=== PATIENT | female | born 1950 | race Caucasian/White ===

== ENCOUNTER 2021-10-30 13:52 | Inpatient (IN) | payer MEDICARE, BC ==
[2021-10-30] MEDS ORDERED: Sodium Chloride 0.9% 2.5 ML Syringe FLUSH PRN ×2 (14:01→15:55)
[2021-10-30] MEDS ORDERED: Aspirin 81 MG Tab.Chew PO ONE (14:01)
[2021-10-30] MEDS ORDERED: Sodium Chloride 0.9% 10 ML Syringe FLUSH PRN (14:01)
[2021-10-30] MEDS ORDERED: Albuterol/Ipratropium 3.0-0.5 MG/3 ML Neb Soln NEB ONE (14:04)
[2021-10-30] MEDS ORDERED: Furosemide 40 MG/4 ML VIAL IVPUSH ONE (14:32)
[2021-10-30] MEDS ORDERED: Nitroglycerin 0.2 MG/HR Transdermal Patch TRDERM STA (14:33)
[2021-10-30 14:59] LABS: BLOOD UREA NITROGEN,BUN 10 mg/dL (7.0-18.0); CHLORIDE,CL 100 mmol/L (98-107); GLUCOSE RANDOM 130 mg/dL (74-106); POTASSIUM,K 4.2 mmol/L (3.5-5.1); SODIUM,NA 137 mmol/L (136-145)
[2021-10-30 15:42] LABS: CORONAVIRUS COVID-19 NAA NEGATIVE (NEGATIVE); INFLUENZA A NAA NEGATIVE (NEGATIVE); INFLUENZA B NAA NEGATIVE (NEGATIVE)
[2021-10-30] MEDS ORDERED: Docusate Sodium 100 MG Cap PO PRN (15:55)
[2021-10-30] MEDS ORDERED: Albuterol/Ipratropium 3.0-0.5 MG/3 ML Neb Soln NEB PRN (15:55)
[2021-10-30] MEDS ORDERED: Ondansetron 4 MG/2 ML SDV IVPUSH PRN (15:55)
[2021-10-30] MEDS ORDERED: Heparin Sodium 5,000 Units/ML Vial SUBCUT SCH (16:00)
[2021-10-30] MEDS ORDERED: Metoprolol Tartrate 50 MG Tab PO SCH (16:15)
[2021-10-30] MEDS ORDERED: hydrALAZINE 20 MG/ML SDV IVPUSH PRN (16:15)
[2021-10-30] MEDS ORDERED: Iopamidol 755 MG/ML 500 ML Multipack Bottle IVPUSH STA (16:29)
[2021-10-30] MEDS ORDERED: cefTRIAXone 1 GM in Sodium Chloride 0.9% 50 ML IV SCH (17:00)
[2021-10-30] MEDS: Nicotine 14 MG/24 Hr Patch TRDERM SCH (18:58)
[2021-10-30] MEDS: Heparin Sodium 5,000 Units/ML Vial SUBCUT SCH ×2 (20:12→21:00)
[2021-10-30] MEDS: cefTRIAXone 1 GM in Sodium Chloride 0.9% 50 ML IV SCH (20:12)
[2021-10-30] MEDS: Acetaminophen 325 MG Tab PO PRN (20:22)
[2021-10-30] MEDS: Metoprolol Tartrate 50 MG Tab PO SCH (21:00)
[2021-10-31 06:39] LABS: CARBON DIOXIDE,CO2 32.5 mmol/L (21.0-32.0); POTASSIUM,K 4.4 mmol/L (3.5-5.1)
[2021-10-31] MEDS ORDERED: NICOTINE Remove Patch TRDERM SCH (09:00)
[2021-10-31] MEDS: Pantoprazole 40 MG Tab.CR PO SCH (09:24)
[2021-10-31] MEDS: amLODIPine 5 MG Tab PO SCH (09:24)
[2021-10-31] MEDS: Metoprolol Tartrate 50 MG Tab PO SCH ×2 (09:27→20:25)
[2021-10-31] MEDS: Heparin Sodium 5,000 Units/ML Vial SUBCUT SCH ×3 (09:28→19:33)
[2021-10-31] MEDS: Aspirin 81 MG Tab.Chew PO SCH (09:28)
[2021-10-31] MEDS: Furosemide 40 MG/4 ML VIAL IVPUSH SCH ×2 (09:28→14:34)
[2021-10-31] MEDS: Nicotine 14 MG/24 Hr Patch TRDERM SCH (09:33)
[2021-10-31] MEDS: cefTRIAXone 1 GM in Sodium Chloride 0.9% 50 ML IV SCH (20:42)
[2021-10-31] MEDS: NICOTINE Remove Patch TRDERM SCH (21:00)
[2021-11-01] MEDS: Heparin Sodium 5,000 Units/ML Vial SUBCUT SCH ×3 (00:36→16:16)
[2021-11-01 06:13] LABS: CARBON DIOXIDE,CO2 35.7 mmol/L (21.0-32.0); POTASSIUM,K 4.2 mmol/L (3.5-5.1)
[2021-11-01] MEDS: Pantoprazole 40 MG Tab.CR PO SCH (06:38)
[2021-11-01] MEDS ORDERED: Furosemide 40 MG/4 ML VIAL IVPUSH SCH (08:00)
[2021-11-01] MEDS: Metoprolol Tartrate 50 MG Tab PO SCH ×2 (09:14→21:26)
[2021-11-01] MEDS: Nicotine 14 MG/24 Hr Patch TRDERM SCH (09:15)
[2021-11-01] MEDS: Aspirin 81 MG Tab.Chew PO SCH (09:15)
[2021-11-01] MEDS: amLODIPine 5 MG Tab PO SCH (09:15)
[2021-11-01] MEDS: Furosemide 40 MG/4 ML VIAL IVPUSH SCH ×2 (14:22→21:27)
[2021-11-01] MEDS: cefTRIAXone 1 GM in Sodium Chloride 0.9% 50 ML IV SCH (21:27)
[2021-11-01] MEDS: NICOTINE Remove Patch TRDERM SCH (21:27)
[2021-11-01] MEDS: Acetaminophen 325 MG Tab PO PRN (22:13)
[2021-11-02] MEDS: Heparin Sodium 5,000 Units/ML Vial SUBCUT SCH ×3 (00:16→18:51)
[2021-11-02 05:54] LABS: CARBON DIOXIDE,CO2 40.3 mmol/L (21.0-32.0)
[2021-11-02] MEDS: Pantoprazole 40 MG Tab.CR PO SCH ×2 (06:22→08:49)
[2021-11-02] MEDS: Furosemide 40 MG/4 ML VIAL IVPUSH SCH ×3 (06:24→22:27)
[2021-11-02] MEDS: amLODIPine 5 MG Tab PO SCH (08:50)
[2021-11-02] MEDS: Nicotine 14 MG/24 Hr Patch TRDERM SCH (08:50)
[2021-11-02] MEDS: Aspirin 81 MG Tab.Chew PO SCH (08:50)
[2021-11-02] MEDS: Metoprolol Tartrate 50 MG Tab PO SCH ×2 (08:51→21:36)
[2021-11-02] MEDS ORDERED: Promethazine 25 MG/ML SDV IM PRN (10:48)
[2021-11-02] MEDS: cefTRIAXone 1 GM in Sodium Chloride 0.9% 50 ML IV SCH (21:36)
[2021-11-02] MEDS: NICOTINE Remove Patch TRDERM SCH (21:37)
[2021-11-03] MEDS: Heparin Sodium 5,000 Units/ML Vial SUBCUT SCH ×4 (01:06→23:16)
[2021-11-03] MEDS: Pantoprazole 40 MG Tab.CR PO SCH ×2 (06:06→06:43)
[2021-11-03] MEDS: Furosemide 40 MG/4 ML VIAL IVPUSH SCH ×3 (06:06→21:19)
[2021-11-03 06:10] LABS: POTASSIUM,K 3.3 mmol/L (3.5-5.1)
[2021-11-03] MEDS: Aspirin 81 MG Tab.Chew PO SCH (10:30)
[2021-11-03] MEDS: Nicotine 14 MG/24 Hr Patch TRDERM SCH (10:33)
[2021-11-03] MEDS: Metoprolol Tartrate 50 MG Tab PO SCH ×2 (10:34→21:17)
[2021-11-03] MEDS: amLODIPine 5 MG Tab PO SCH (10:34)
[2021-11-03] MEDS ORDERED: Potassium Chloride 20 MEQ Tab.ER PO ONE (12:11)
[2021-11-03] MEDS: cefTRIAXone 1 GM in Sodium Chloride 0.9% 50 ML IV SCH (20:22)
[2021-11-03] MEDS: NICOTINE Remove Patch TRDERM SCH (20:23)
[2021-11-03] MEDS: Acetaminophen 325 MG Tab PO PRN (21:18)
[2021-11-04] MEDS: Furosemide 40 MG/4 ML VIAL IVPUSH SCH ×3 (06:28→21:03)
[2021-11-04] MEDS: Pantoprazole 40 MG Tab.CR PO SCH (06:30)
[2021-11-04 07:29] LABS: CARBON DIOXIDE,CO2 41.7 mmol/L (21.0-32.0); POTASSIUM,K 3.7 mmol/L (3.5-5.1)
[2021-11-04] MEDS: Aspirin 81 MG Tab.Chew PO SCH (08:10)
[2021-11-04] MEDS: Nicotine 14 MG/24 Hr Patch TRDERM SCH (08:10)
[2021-11-04] MEDS: amLODIPine 5 MG Tab PO SCH (08:10)
[2021-11-04] MEDS: Potassium Chloride 10 MEQ Tab.ER PO SCH (08:11)
[2021-11-04] MEDS: Heparin Sodium 5,000 Units/ML Vial SUBCUT SCH ×3 (08:11→23:04)
[2021-11-04] MEDS: Metoprolol Tartrate 50 MG Tab PO SCH ×2 (08:11→20:52)
[2021-11-04] MEDS: Acetaminophen 325 MG Tab PO PRN (21:01)
[2021-11-04] MEDS: NICOTINE Remove Patch TRDERM SCH (21:02)
[2021-11-05] MEDS: Pantoprazole 40 MG Tab.CR PO SCH (06:36)
[2021-11-05] MEDS: Furosemide 40 MG/4 ML VIAL IVPUSH SCH (06:38)
[2021-11-05 07:07] LABS: CARBON DIOXIDE,CO2 42.6 mmol/L (21.0-32.0); POTASSIUM,K 3.4 mmol/L (3.5-5.1)
[2021-11-05] MEDS: Heparin Sodium 5,000 Units/ML Vial SUBCUT SCH ×3 (09:00→23:19)
[2021-11-05] MEDS: Aspirin 81 MG Tab.Chew PO SCH (09:14)
[2021-11-05] MEDS: Potassium Chloride 10 MEQ Tab.ER PO SCH (09:16)
[2021-11-05] MEDS: Nicotine 14 MG/24 Hr Patch TRDERM SCH (09:16)
[2021-11-05] MEDS: Metoprolol Tartrate 50 MG Tab PO SCH (09:18)
[2021-11-05] MEDS: amLODIPine 5 MG Tab PO SCH (09:19)
[2021-11-05] MEDS ORDERED: Potassium Chloride 20 MEQ Tab.ER PO ONE (10:50)
[2021-11-05] MEDS: Metoprolol Tartrate 25 MG Tab PO SCH (20:05)
[2021-11-05] MEDS: Acetaminophen 325 MG Tab PO PRN (20:05)
[2021-11-05] MEDS: Furosemide 100 MG/10 ML SDV IVPUSH SCH (20:05)
[2021-11-05] MEDS: NICOTINE Remove Patch TRDERM SCH (20:06)
[2021-11-06] MEDS: Pantoprazole 40 MG Tab.CR PO SCH (06:35)
[2021-11-06 06:43] LABS: CARBON DIOXIDE,CO2 38.3 mmol/L (21.0-32.0); POTASSIUM,K 3.6 mmol/L (3.5-5.1)
[2021-11-06] MEDS: Heparin Sodium 5,000 Units/ML Vial SUBCUT SCH ×2 (08:35→16:04)
[2021-11-06] MEDS: Aspirin 81 MG Tab.Chew PO SCH (08:36)
[2021-11-06] MEDS: amLODIPine 5 MG Tab PO SCH (08:36)
[2021-11-06] MEDS: Metoprolol Tartrate 25 MG Tab PO SCH (08:40)
[2021-11-06] MEDS: Potassium Chloride 10 MEQ Tab.ER PO SCH (08:41)
[2021-11-06] MEDS: Nicotine 14 MG/24 Hr Patch TRDERM SCH (08:42)
[2021-11-06] MEDS: Furosemide 100 MG/10 ML SDV IVPUSH SCH (09:32)
[2021-11-06 11:50] VITALS: BP 145/59; PULSE 57
== END 2021-11-06 17:48 | disposition home health service (06) | DRG 291 ==
LOC: MW.ED 13:52 → MW.MS 15:40
PROVIDERS: ADMIT Internal Medicine; ATTEND Internal Medicine
DX: I11.0 Hypertensive heart disease with heart failure (principal); J96.01 Acute respiratory failure with hypoxia; N39.0 Urinary tract infection, site not specified; I50.9 Heart failure, unspecified; K21.9 Gastro-esophageal reflux disease without esophagitis; Z20.822 Contact with and (suspected) exposure to COVID-19; E66.9 Obesity, unspecified; Z66 Do not resuscitate; I08.1 Rheumatic disorders of both mitral and tricuspid valves; F17.210 Nicotine dependence, cigarettes, uncomplicated; E87.6 Hypokalemia; Z68.38 Body mass index [BMI] 38.0-38.9, adult; Z88.8 Allergy status to other drugs, medicaments and biological substances; Z79.82 Long term (current) use of aspirin; Z79.899 Other long term (current) drug therapy; Z86.73 Personal history of transient ischemic attack (TIA), and cerebral infarction without residual deficits
CPT/HCPCS: 0240U; 36415; 71045; 71275; 80048; 80053; 80061; 81001; 83036; 83735; 83880; 84100; 84439; 84443; 84484; 85025; 85027; 85379; 87086; 87088; 87186; 93005; 93306; 94640; 97163; 99285; 93010; 99223; 99232; 99233; 99238; A9270-GY; J0696; J1644; J1940; J2405; J3490; J7620-GY; Q9967

== ENCOUNTER 2021-12-18 16:34 | Emergency (ER) | payer MEDICARE, BC ==
[2021-12-18] MEDS ORDERED: Sodium Chloride 0.9% 2.5 ML Syringe FLUSH PRN (16:41)
[2021-12-18] MEDS ORDERED: Sodium Chloride 0.9% 10 ML Syringe FLUSH PRN (16:41)
[2021-12-18 17:24] LABS: CARBON DIOXIDE,CO2 27.5 mmol/L (21.0-32.0); POTASSIUM,K 4.1 mmol/L (3.5-5.1)
[2021-12-18 19:23] VITALS: BP 189/86; PULSE 66
== END 2021-12-18 19:30 | disposition home or self-care (01) ==
LOC: MW.ED 16:34
DX: R42 Dizziness and giddiness (principal); R60.0 Localized edema; I11.0 Hypertensive heart disease with heart failure; I50.9 Heart failure, unspecified; J44.9 Chronic obstructive pulmonary disease, unspecified; F17.210 Nicotine dependence, cigarettes, uncomplicated; Z91.018 Allergy to other foods; Z79.82 Long term (current) use of aspirin; Z79.899 Other long term (current) drug therapy; Z20.822 Contact with and (suspected) exposure to COVID-19
CPT/HCPCS: 36415; 71046; 80053; 83880; 84484; 85025; 93005; 93970; 99284; J3490; U0002

== ENCOUNTER 2022-12-28 10:22 | Emergency (ER) | payer MEDICARE, BC ==
[2022-12-28 12:26] VITALS: BP 172/74; PULSE 50
== END 2022-12-28 12:28 | disposition home or self-care (01) ==
LOC: MW.ED 10:22
DX: M17.12 Unilateral primary osteoarthritis, left knee (principal); I11.0 Hypertensive heart disease with heart failure; I50.9 Heart failure, unspecified; J44.9 Chronic obstructive pulmonary disease, unspecified; M19.90 Unspecified osteoarthritis, unspecified site; F17.210 Nicotine dependence, cigarettes, uncomplicated; Z88.8 Allergy status to other drugs, medicaments and biological substances; Z91.018 Allergy to other foods; Z79.82 Long term (current) use of aspirin; Z79.899 Other long term (current) drug therapy
CPT/HCPCS: 73562-26-LT; 73562-LT; 99283

== ENCOUNTER 2023-01-18 14:30 | Emergency (ER) | payer MEDICARE, BC ==
[2023-01-18 16:30] VITALS: BP 172/64
[2023-01-18 17:13] LABS: BASOPHILS ABSOLUTE AUTO 0.1 K/uL (0.0-0.1); BASOPHILS PERCENT AUTO 0.5 % (0.0-1.5); EOSINOPHILS ABSOLUTE AUTO 0.1 K/uL (0.0-0.7); EOSINOPHILS PERCENT AUTO 0.7 % (0.0-7.0); HEMATOCRIT 49.9 % (36.0-46.0); HEMOGLOBIN 16.7 g/dL (12.0-16.0); LYMPHOCYTES ABSOLUTE AUTO 2.5 K/uL (0.6-2.4); LYMPHOCYTES PERCENT AUTO 20.5 % (16.0-40.0); MEAN CORPUSCULAR HEMOGLOBIN 33.5 pg (27.0-32.0); MEAN CORPUSCULAR HGB CONC 33.5 g/dL (31.0-37.0); MONOCYTES ABSOLUTE AUTO 0.7 K/uL (0.0-0.8); MONOCYTES PERCENT AUTO 5.5 % (0.0-15.0); NEUTROPHILS PERCENT AUTO 72.8 % (48.0-80.0); NRBC ABSOLUTE 0 K/uL; PLATELET COUNT,PLT 265 K/uL (150-400); RED BLOOD CELL COUNT 4.99 M/uL (4.30-5.90); WHITE BLOOD CELL COUNT,WBC 12.33 K/uL (4.0-11.0)
[2023-01-18 17:23] LABS: INR 1.04 (0.86-1.11)
[2023-01-18 17:41] LABS: A/G RATIO 0.9 (0.9-1.6); ALBUMIN 3.7 g/dL (3.4-5.0); BILIRUBIN TOTAL 0.7 mg/dL (0.2-1.0); CALCIUM 9.6 mg/dL (8.5-10.1); CARBON DIOXIDE,CO2 30.4 mmol/L (21.0-32.0); CREATININE 1.3 mg/dL (0.6-1.0); EST CRCL DRUG DOSING (CG) 27.68 mL/min; PROTEIN TOTAL,TP 7.9 g/dL (6.4-8.2)
[2023-01-18 18:07] LABS: APPEARANCE,URINE CLEAR; BILIRUBIN,URINE NEGATIVE (NEGATIVE); COLOR,URINE YELLOW; GLUCOSE,URINE NEGATIVE (NEGATIVE); KETONES,URINE NEGATIVE (NEGATIVE); LEUKOCYTE ESTERASE,URINE NEGATIVE (NEGATIVE); NITRITE,URINE NEGATIVE (NEGATIVE); OCCULT BLOOD,URINE TRACE-INTACT (NEGATIVE); PROTEIN,URINE NEGATIVE (NEGATIVE); UROBILINOGEN,URINE 0.2 EU/dL (<2.0)
[2023-01-18 18:21] LABS: BACTERIA,URINE RARE (NEGATIVE); EPITHELIAL CELLS,URINE RARE (NONE-FEW); RBC,URINE 0-2 (0-2/HPF); WBC,URINE 0-1 (0-5/HPF)
[2023-01-18 19:15] VITALS: PULSE 76
== END 2023-01-18 19:14 | disposition home or self-care (01) ==
LOC: MW.ED 14:30
DX: R60.0 Localized edema (principal); I11.0 Hypertensive heart disease with heart failure; I50.9 Heart failure, unspecified; J44.9 Chronic obstructive pulmonary disease, unspecified; Z86.73 Personal history of transient ischemic attack (TIA), and cerebral infarction without residual deficits; Z72.0 Tobacco use; Z88.8 Allergy status to other drugs, medicaments and biological substances; Z91.018 Allergy to other foods
CPT/HCPCS: 36415; 71045; 71045-26; 80053; 81001; 83880; 84484; 85025; 85610; 93005; 93971-26-LT; 93971-LT; 99285

== ENCOUNTER 2024-10-05 17:16 | Emergency (ER) | payer MEDICARE, BC ==
[2024-10-05 18:41] LABS: BASOPHILS ABSOLUTE AUTO 0.03 K/uL (0.00-0.20); BASOPHILS PERCENT AUTO 0.4 % (0.0-1.0); EOSINOPHILS ABSOLUTE AUTO 0.03 K/uL (0.00-0.45); EOSINOPHILS PERCENT AUTO 0.4 % (0.0-6.0); HEMATOCRIT 50.3 % (37.0-47.0); HEMOGLOBIN 16.3 g/dL (12.0-16.0); IMMATURE GRAN ABSOLUTE AUTO 0.03 K/uL (0.00-0.05); IMMATURE GRAN PERCENT AUTO 0.4 % (0.0-0.4); LYMPHOCYTES PERCENT AUTO 11.9 % (24.0-44.0); MEAN CORPUSCULAR HEMOGLOBIN 31.7 pg (28.0-32.0); MEAN CORPUSCULAR HGB CONC 32.4 g/dL (32.0-36.0); MEAN CORPUSCULAR VOLUME 97.7 fL (83.0-99.0); MEAN PLATELET VOLUME 9.7 fL (9.4-12.3); MONOCYTES ABSOLUTE AUTO 0.63 K/uL (0.00-0.80); MONOCYTES PERCENT AUTO 9.3 % (0.0-8.0); NEUTROPHILS ABSOLUTE AUTO 5.23 K/uL (1.80-7.70); NEUTROPHILS PERCENT AUTO 77.6 % (41.0-71.0); PLATELET COUNT,PLT 182 K/uL (150-400); RED BLOOD CELL COUNT 5.15 M/uL (4.10-5.30); WHITE BLOOD CELL COUNT,WBC 6.75 K/uL (3.9-11.3)
[2024-10-05 19:00] LABS: CALCIUM 9.1 mg/dL (8.5-10.1); CARBON DIOXIDE,CO2 28.9 mmol/L (21.0-32.0); CREATININE 1.2 mg/dL (0.6-1.0); EST CRCL DRUG DOSING (CG) 36.45 mL/min; POTASSIUM,K 4.1 mmol/L (3.5-5.1)
[2024-10-05 19:24] VITALS: BP 132/70; PULSE 64
== END 2024-10-05 19:25 | disposition home or self-care (01) ==
LOC: MW.ED 17:16
DX: J40 Bronchitis, not specified as acute or chronic (principal); I11.0 Hypertensive heart disease with heart failure; I50.9 Heart failure, unspecified; F17.200 Nicotine dependence, unspecified, uncomplicated; Z79.899 Other long term (current) drug therapy; Z91.018 Allergy to other foods; Z88.8 Allergy status to other drugs, medicaments and biological substances
CPT/HCPCS: 36415; 71045; 71045-26; 80048; 85025; 87428-QW; 99283

== ENCOUNTER 2025-01-04 11:39 | Emergency (ER) | payer MEDICARE, BC ==
[2025-01-04 12:36] LABS: BASOPHILS ABSOLUTE AUTO 0.07 K/uL (0.00-0.20); BASOPHILS PERCENT AUTO 0.7 % (0.0-1.0); EOSINOPHILS ABSOLUTE AUTO 0.05 K/uL (0.00-0.45); EOSINOPHILS PERCENT AUTO 0.5 % (0.0-6.0); HEMATOCRIT 50.1 % (37.0-47.0); HEMOGLOBIN 16.4 g/dL (12.0-16.0); IMMATURE GRAN ABSOLUTE AUTO 0.02 K/uL (0.00-0.05); IMMATURE GRAN PERCENT AUTO 0.2 % (0.0-0.4); LYMPHOCYTES PERCENT AUTO 10.3 % (24.0-44.0); MEAN CORPUSCULAR HEMOGLOBIN 31.5 pg (28.0-32.0); MEAN CORPUSCULAR HGB CONC 32.7 g/dL (32.0-36.0); MEAN CORPUSCULAR VOLUME 96.2 fL (83.0-99.0); MEAN PLATELET VOLUME 9.1 fL (9.4-12.3); MONOCYTES PERCENT AUTO 5.1 % (0.0-8.0); NEUTROPHILS ABSOLUTE AUTO 8.11 K/uL (1.80-7.70); NEUTROPHILS PERCENT AUTO 83.2 % (41.0-71.0); PLATELET COUNT,PLT 269 K/uL (150-400); RED BLOOD CELL COUNT 5.21 M/uL (4.10-5.30); WHITE BLOOD CELL COUNT,WBC 9.75 K/uL (3.9-11.3)
[2025-01-04 13:00] LABS: A/G RATIO 0.9 (0.9-1.6); ALBUMIN 3.4 g/dL (3.4-5.0); BILIRUBIN TOTAL 0.9 mg/dL (0.2-1.0); CALCIUM 9.1 mg/dL (8.5-10.1); CARBON DIOXIDE,CO2 30.5 mmol/L (21.0-32.0); CREATININE 1.2 mg/dL (0.6-1.0); EST CRCL DRUG DOSING (CG) 36.45 mL/min; POTASSIUM,K 4.9 mmol/L (3.5-5.1); PROTEIN TOTAL,TP 7.2 g/dL (6.4-8.2)
[2025-01-04 14:19] LABS: APPEARANCE,URINE SLT CLOUDY; BILIRUBIN,URINE NEGATIVE (NEGATIVE); COLOR,URINE YELLOW; GLUCOSE,URINE NEGATIVE (NEGATIVE); KETONES,URINE NEGATIVE (NEGATIVE); LEUKOCYTE ESTERASE,URINE SMALL (NEGATIVE); NITRITE,URINE POSITIVE (NEGATIVE); OCCULT BLOOD,URINE NEGATIVE (NEGATIVE); PH,URINE 5.5 (5.0-8.0); PROTEIN,URINE NEGATIVE (NEGATIVE)
[2025-01-04 14:32] LABS: BACTERIA,URINE 2+ (NEGATIVE); EPITHELIAL CELLS,URINE FEW (NONE-FEW); MUCUS,URINE LIGHT (NONE-MOD); RBC,URINE NONE SEEN (0-2/HPF)
[2025-01-04 15:33] VITALS: BP 164/52; PULSE 61
== END 2025-01-04 15:33 | disposition home or self-care (01) ==
LOC: MW.ED 11:39
DX: R19.7 Diarrhea, unspecified (principal); R42 Dizziness and giddiness; R82.90 Unspecified abnormal findings in urine; I11.0 Hypertensive heart disease with heart failure; I50.9 Heart failure, unspecified; J44.9 Chronic obstructive pulmonary disease, unspecified; F17.210 Nicotine dependence, cigarettes, uncomplicated; Z86.73 Personal history of transient ischemic attack (TIA), and cerebral infarction without residual deficits; Z91.018 Allergy to other foods; Z88.8 Allergy status to other drugs, medicaments and biological substances; Z79.82 Long term (current) use of aspirin; Z79.899 Other long term (current) drug therapy
CPT/HCPCS: 36415; 80053; 81001; 83735; 85025; 87086; 93005; 93010; 99283; 99285

== ENCOUNTER 2025-01-07 16:35 | Emergency (ER) | payer MEDICARE, BC ==
[2025-01-07] MEDS ORDERED: Sodium Chloride 0.9% 2.5 ML Syringe FLUSH PRN (17:04)
[2025-01-07] MEDS ORDERED: Sodium Chloride 0.9% 20 ML SDV IV PRN (17:04)
[2025-01-07] MEDS ORDERED: Sodium Chloride 0.9% 10 ML Syringe FLUSH PRN (17:04)
[2025-01-07 17:35] LABS: BASOPHILS ABSOLUTE AUTO 0.06 K/uL (0.00-0.20); BASOPHILS PERCENT AUTO 0.7 % (0.0-1.0); EOSINOPHILS ABSOLUTE AUTO 0.16 K/uL (0.00-0.45); EOSINOPHILS PERCENT AUTO 1.9 % (0.0-6.0); HEMATOCRIT 50.8 % (37.0-47.0); HEMOGLOBIN 16.7 g/dL (12.0-16.0); IMMATURE GRAN ABSOLUTE AUTO 0.03 K/uL (0.00-0.05); IMMATURE GRAN PERCENT AUTO 0.4 % (0.0-0.4); LYMPHOCYTES ABSOLUTE AUTO 1.61 K/uL (1.00-4.80); LYMPHOCYTES PERCENT AUTO 18.8 % (24.0-44.0); MEAN CORPUSCULAR HEMOGLOBIN 31.6 pg (28.0-32.0); MEAN CORPUSCULAR HGB CONC 32.9 g/dL (32.0-36.0); MEAN PLATELET VOLUME 9.1 fL (9.4-12.3); MONOCYTES ABSOLUTE AUTO 0.54 K/uL (0.00-0.80); MONOCYTES PERCENT AUTO 6.3 % (0.0-8.0); NEUTROPHILS ABSOLUTE AUTO 6.16 K/uL (1.80-7.70); NEUTROPHILS PERCENT AUTO 71.9 % (41.0-71.0); PLATELET COUNT,PLT 271 K/uL (150-400); RED BLOOD CELL COUNT 5.29 M/uL (4.10-5.30); WHITE BLOOD CELL COUNT,WBC 8.56 K/uL (3.9-11.3)
[2025-01-07] MEDS: Sodium Chloride 0.9% 500 ML IV ONE (17:36)
[2025-01-07 17:57] LABS: A/G RATIO 0.9 (0.9-1.6); ALBUMIN 3.6 g/dL (3.4-5.0); BILIRUBIN TOTAL 0.9 mg/dL (0.2-1.0); CALCIUM 9.2 mg/dL (8.5-10.1); CARBON DIOXIDE,CO2 31.3 mmol/L (21.0-32.0); CREATININE 1.1 mg/dL (0.6-1.0); EST CRCL DRUG DOSING (CG) 39.76 mL/min; POTASSIUM,K 4.1 mmol/L (3.5-5.1); PROTEIN TOTAL,TP 7.4 g/dL (6.4-8.2)
[2025-01-07 17:58] LABS: APPEARANCE,URINE CLEAR; BILIRUBIN,URINE NEGATIVE (NEGATIVE); COLOR,URINE YELLOW; GLUCOSE,URINE NEGATIVE (NEGATIVE); KETONES,URINE TRACE mg/dL (NEGATIVE); LEUKOCYTE ESTERASE,URINE NEGATIVE (NEGATIVE); NITRITE,URINE POSITIVE (NEGATIVE); OCCULT BLOOD,URINE NEGATIVE (NEGATIVE); PH,URINE 5.5 (5.0-8.0); PROTEIN,URINE NEGATIVE (NEGATIVE); UROBILINOGEN,URINE 0.2 EU/dL (<2.0)
[2025-01-07 18:14] LABS: RBC,URINE 0-1 (0-2/HPF); WBC,URINE 0-2 (0-5/HPF)
[2025-01-07 18:15] LABS: BACTERIA,URINE 2+ (NEGATIVE); EPITHELIAL CELLS,URINE RARE (NONE-FEW)
[2025-01-07 19:08] LABS: CORONAVIRUS COVID-19 NAA NEGATIVE (NEGATIVE); INFLUENZA A NAA NEGATIVE (NEGATIVE); INFLUENZA B NAA NEGATIVE (NEGATIVE); RESPIRATORY SYNCYTIAL VIR NAA NEGATIVE (NEGATIVE)
[2025-01-07] MEDS: Cephalexin 500 MG Cap PO ONE (19:19)
[2025-01-07 19:47] VITALS: BP 171/55; PULSE 61
== END 2025-01-07 19:47 | disposition home or self-care (01) ==
LOC: MW.ED 16:35
DX: R10.84 Generalized abdominal pain (principal); R05.9 Cough, unspecified; R82.90 Unspecified abnormal findings in urine; I11.0 Hypertensive heart disease with heart failure; I50.9 Heart failure, unspecified; J44.9 Chronic obstructive pulmonary disease, unspecified; Z79.899 Other long term (current) drug therapy; Z91.018 Allergy to other foods; Z88.8 Allergy status to other drugs, medicaments and biological substances
CPT/HCPCS: 0241U; 36415; 70450; 71045; 74176; 80053; 81001; 83690; 83735; 85025; 87086; 93005; 96360; 96361; 99285; A9270; J7030; 87088; 87186; 93010; 99284

== ENCOUNTER 2025-02-01 08:57 | Emergency (ER) | payer MEDICARE, BC ==
[2025-02-01 09:03] VITALS: PULSE 58
[2025-02-01 09:30] LABS: BASOPHILS ABSOLUTE AUTO 0.06 K/uL (0.00-0.20); BASOPHILS PERCENT AUTO 0.8 % (0.0-1.0); EOSINOPHILS ABSOLUTE AUTO 0.17 K/uL (0.00-0.45); EOSINOPHILS PERCENT AUTO 2.3 % (0.0-6.0); IMMATURE GRAN ABSOLUTE AUTO 0.02 K/uL (0.00-0.05); IMMATURE GRAN PERCENT AUTO 0.3 % (0.0-0.4); LYMPHOCYTES ABSOLUTE AUTO 1.10 K/uL (1.00-4.80); LYMPHOCYTES PERCENT AUTO 14.9 % (24.0-44.0); MEAN PLATELET VOLUME 9.7 fL (9.4-12.3); MONOCYTES ABSOLUTE AUTO 0.46 K/uL (0.00-0.80); MONOCYTES PERCENT AUTO 6.2 % (0.0-8.0); NEUTROPHILS ABSOLUTE AUTO 5.59 K/uL (1.80-7.70); NEUTROPHILS PERCENT AUTO 75.5 % (41.0-71.0); NRBC ABSOLUTE 0.00 K/uL (0.00-0.02); NRBC PERCENT 0.0 /100WBC (0.0-0.2); PLATELET COUNT,PLT 233 K/uL (150-400); RED BLOOD CELL COUNT 5.42 M/uL (4.10-5.30); WHITE BLOOD CELL COUNT,WBC 7.40 K/uL (3.9-11.3)
[2025-02-01 10:09] LABS: A/G RATIO 1.0 (0.9-1.6); ALANINE AMINOTRANSFERASE,ALT 18.0 IU/L (14-63); ASPARTATE AMNIOTRANSFERASE,AST 15.0 IU/L (15-37); BILIRUBIN TOTAL 1.0 mg/dL (0.2-1.0); BLOOD UREA NITROGEN,BUN 5.0 mg/dL (7.0-18.0); CARBON DIOXIDE,CO2 35.1 mmol/L (21.0-32.0); CHLORIDE,CL 100.0 mmol/L (98-107); CREATININE 0.9 mg/dL (0.6-1.0); EST CRCL DRUG DOSING (CG) 46.64 mL/min; GLUCOSE RANDOM 120.0 mg/dL (74-106); POTASSIUM,K 3.0 mmol/L (3.5-5.1); PROTEIN TOTAL,TP 6.7 g/dL (6.4-8.2); SODIUM,NA 142.0 mmol/L (136-145)
[2025-02-01 10:10] LABS: ESTIMATED GFR 67.0 mL/min (>60)
[2025-02-01 10:15] VITALS: BP 160/55
[2025-02-01] MEDS: Potassium Chloride 20 MEQ Tab.ER PO ONE (10:44)
== END 2025-02-01 11:22 | disposition home or self-care (01) ==
LOC: MW.ED 08:57
DX: R19.7 Diarrhea, unspecified (principal); R53.1 Weakness; E86.0 Dehydration; E87.6 Hypokalemia; I11.0 Hypertensive heart disease with heart failure; I50.9 Heart failure, unspecified; Z75.3 Unavailability and inaccessibility of health-care facilities; Z91.018 Allergy to other foods; Z88.8 Allergy status to other drugs, medicaments and biological substances; Z79.82 Long term (current) use of aspirin; Z79.899 Other long term (current) drug therapy
CPT/HCPCS: 36415; 80053; 84484; 85025; 93005; 96360; 99285; A9270; J7030

== ENCOUNTER 2025-02-04 10:02 | Emergency (ER) | payer MEDICARE, BC ==
[2025-02-04 11:25] LABS: BASOPHILS ABSOLUTE AUTO 0.04 K/uL (0.00-0.20); BASOPHILS PERCENT AUTO 0.4 % (0.0-1.0); EOSINOPHILS ABSOLUTE AUTO 0.05 K/uL (0.00-0.45); EOSINOPHILS PERCENT AUTO 0.5 % (0.0-6.0); IMMATURE GRAN ABSOLUTE AUTO 0.05 K/uL (0.00-0.05); IMMATURE GRAN PERCENT AUTO 0.5 % (0.0-0.4); LYMPHOCYTES ABSOLUTE AUTO 1.24 K/uL (1.00-4.80); LYMPHOCYTES PERCENT AUTO 11.4 % (24.0-44.0); MEAN PLATELET VOLUME 9.3 fL (9.4-12.3); MONOCYTES ABSOLUTE AUTO 0.56 K/uL (0.00-0.80); MONOCYTES PERCENT AUTO 5.1 % (0.0-8.0); NEUTROPHILS ABSOLUTE AUTO 8.98 K/uL (1.80-7.70); NEUTROPHILS PERCENT AUTO 82.1 % (41.0-71.0); NRBC ABSOLUTE 0.00 K/uL (0.00-0.02); NRBC PERCENT 0.0 /100WBC (0.0-0.2); PLATELET COUNT,PLT 212 K/uL (150-400); RED BLOOD CELL COUNT 4.97 M/uL (4.10-5.30); WHITE BLOOD CELL COUNT,WBC 10.92 K/uL (3.9-11.3)
[2025-02-04 11:34] LABS: APPEARANCE,URINE SLT CLOUDY; GLUCOSE,URINE NEGATIVE (NEGATIVE); OCCULT BLOOD,URINE NEGATIVE (NEGATIVE)
[2025-02-04 11:42] LABS: BLOOD UREA NITROGEN,BUN 7.0 mg/dL (7.0-18.0); CARBON DIOXIDE,CO2 35.5 mmol/L (21.0-32.0); CHLORIDE,CL 104.0 mmol/L (98-107); CREATININE 1.0 mg/dL (0.6-1.0); EST CRCL DRUG DOSING (CG) 40.21 mL/min; GLUCOSE RANDOM 128.0 mg/dL (74-106); POTASSIUM,K 3.7 mmol/L (3.5-5.1); SODIUM,NA 142.0 mmol/L (136-145)
[2025-02-04 11:44] LABS: ESTIMATED GFR 59.0 mL/min (>60)
[2025-02-04 11:48] LABS: EPITHELIAL CELLS,URINE MODERATE (NONE-FEW)
[2025-02-04 12:27] VITALS: BP 177/75; PULSE 59
== END 2025-02-04 12:28 | disposition home or self-care (01) ==
LOC: MW.ED 10:02
DX: N39.0 Urinary tract infection, site not specified (principal); I11.0 Hypertensive heart disease with heart failure; I50.9 Heart failure, unspecified; Z88.8 Allergy status to other drugs, medicaments and biological substances; Z79.899 Other long term (current) drug therapy; Z79.82 Long term (current) use of aspirin
CPT/HCPCS: 36415; 51798; 80048; 81001; 85025; 99283; A9270

== ENCOUNTER 2025-02-06 09:28 | Emergency (ER) | payer MEDICARE, BC ==
[2025-02-06] MEDS ORDERED: Sodium Chloride 0.9% 10 ML Syringe FLUSH PRN (10:07)
[2025-02-06] MEDS ORDERED: Sodium Chloride 0.9% 2.5 ML Syringe FLUSH PRN (10:07)
[2025-02-06 10:18] LABS: BASOPHILS ABSOLUTE AUTO 0.05 K/uL (0.00-0.20); BASOPHILS PERCENT AUTO 0.6 % (0.0-1.0); EOSINOPHILS ABSOLUTE AUTO 0.17 K/uL (0.00-0.45); EOSINOPHILS PERCENT AUTO 2.2 % (0.0-6.0); IMMATURE GRAN ABSOLUTE AUTO 0.02 K/uL (0.00-0.05); IMMATURE GRAN PERCENT AUTO 0.3 % (0.0-0.4); LYMPHOCYTES ABSOLUTE AUTO 1.18 K/uL (1.00-4.80); LYMPHOCYTES PERCENT AUTO 15.0 % (24.0-44.0); MEAN PLATELET VOLUME 10.0 fL (9.4-12.3); MONOCYTES ABSOLUTE AUTO 0.48 K/uL (0.00-0.80); MONOCYTES PERCENT AUTO 6.1 % (0.0-8.0); NEUTROPHILS ABSOLUTE AUTO 5.98 K/uL (1.80-7.70); NEUTROPHILS PERCENT AUTO 75.8 % (41.0-71.0); NRBC ABSOLUTE 0.00 K/uL (0.00-0.02); NRBC PERCENT 0.0 /100WBC (0.0-0.2); PLATELET COUNT,PLT 240 K/uL (150-400); RED BLOOD CELL COUNT 5.21 M/uL (4.10-5.30); WHITE BLOOD CELL COUNT,WBC 7.88 K/uL (3.9-11.3)
[2025-02-06 10:35] LABS: A/G RATIO 1.0 (0.9-1.6); ALANINE AMINOTRANSFERASE,ALT 13.0 IU/L (14-63); ASPARTATE AMNIOTRANSFERASE,AST 18.0 IU/L (15-37); BILIRUBIN TOTAL 0.7 mg/dL (0.2-1.0); BLOOD UREA NITROGEN,BUN 6.0 mg/dL (7.0-18.0); CARBON DIOXIDE,CO2 31.5 mmol/L (21.0-32.0); CHLORIDE,CL 101.0 mmol/L (98-107); CREATININE 1.1 mg/dL (0.6-1.0); EST CRCL DRUG DOSING (CG) 39.76 mL/min; ESTIMATED GFR 52.0 mL/min (>60); GLUCOSE RANDOM 144.0 mg/dL (74-106); POTASSIUM,K 3.3 mmol/L (3.5-5.1); PRO B-TYPE NATRIUR PEPT,BNPPRO 897.0 pg/mL (0-450); PROTEIN TOTAL,TP 6.7 g/dL (6.4-8.2); SODIUM,NA 143.0 mmol/L (136-145)
[2025-02-06 13:26] VITALS: BP 148/63; PULSE 64
== END 2025-02-06 13:26 | disposition home or self-care (01) ==
LOC: MW.ED 09:28
DX: J18.9 Pneumonia, unspecified organism (principal); B34.9 Viral infection, unspecified; I11.0 Hypertensive heart disease with heart failure; I50.9 Heart failure, unspecified; J44.9 Chronic obstructive pulmonary disease, unspecified; F17.210 Nicotine dependence, cigarettes, uncomplicated; Z79.899 Other long term (current) drug therapy; Z79.82 Long term (current) use of aspirin; Z88.8 Allergy status to other drugs, medicaments and biological substances; Z91.018 Allergy to other foods
CPT/HCPCS: 36415; 71046; 71046-26; 80053; 83690; 83880; 84484; 85025; 87428-QW; 93005; 93010; 99283; 99285

== ENCOUNTER 2025-02-08 10:06 | Observation (INO) | payer MEDICARE, BC ==
[2025-02-08 11:13] LABS: BASOPHILS ABSOLUTE AUTO 0.05 K/uL (0.00-0.20); BASOPHILS PERCENT AUTO 0.6 % (0.0-1.0); EOSINOPHILS ABSOLUTE AUTO 0.12 K/uL (0.00-0.45); EOSINOPHILS PERCENT AUTO 1.4 % (0.0-6.0); IMMATURE GRAN ABSOLUTE AUTO 0.08 K/uL (0.00-0.05); IMMATURE GRAN PERCENT AUTO 1.0 % (0.0-0.4); LYMPHOCYTES ABSOLUTE AUTO 0.96 K/uL (1.00-4.80); LYMPHOCYTES PERCENT AUTO 11.4 % (24.0-44.0); MEAN PLATELET VOLUME 9.2 fL (9.4-12.3); MONOCYTES ABSOLUTE AUTO 0.47 K/uL (0.00-0.80); MONOCYTES PERCENT AUTO 5.6 % (0.0-8.0); NEUTROPHILS ABSOLUTE AUTO 6.71 K/uL (1.80-7.70); NEUTROPHILS PERCENT AUTO 80.0 % (41.0-71.0); NRBC ABSOLUTE 0.00 K/uL (0.00-0.02); NRBC PERCENT 0.0 /100WBC (0.0-0.2); PLATELET COUNT,PLT 213 K/uL (150-400); RED BLOOD CELL COUNT 5.11 M/uL (4.10-5.30); WHITE BLOOD CELL COUNT,WBC 8.39 K/uL (3.9-11.3)
[2025-02-08 11:37] LABS: A/G RATIO 1.0 (0.9-1.6); ALANINE AMINOTRANSFERASE,ALT 15.0 IU/L (14-63); ASPARTATE AMNIOTRANSFERASE,AST 18.0 IU/L (15-37); BILIRUBIN TOTAL 0.7 mg/dL (0.2-1.0); BLOOD UREA NITROGEN,BUN 5.0 mg/dL (7.0-18.0); CARBON DIOXIDE,CO2 32.3 mmol/L (21.0-32.0); CHLORIDE,CL 102.0 mmol/L (98-107); CREATININE 0.9 mg/dL (0.6-1.0); EST CRCL DRUG DOSING (CG) 46.64 mL/min; GLUCOSE RANDOM 114.0 mg/dL (74-106); POTASSIUM,K 3.9 mmol/L (3.5-5.1); PROTEIN TOTAL,TP 6.3 g/dL (6.4-8.2); SODIUM,NA 141.0 mmol/L (136-145)
[2025-02-08 11:38] LABS: ESTIMATED GFR 67.0 mL/min (>60)
[2025-02-08 13:41] LABS: APPEARANCE,URINE CLEAR; GLUCOSE,URINE NEGATIVE (NEGATIVE); OCCULT BLOOD,URINE NEGATIVE (NEGATIVE)
[2025-02-08 13:53] LABS: EPITHELIAL CELLS,URINE FEW (NONE-FEW)
[2025-02-08] MEDS ORDERED: Ondansetron 4 MG/2 ML SDV IVPUSH PRN (15:04)
[2025-02-08] MEDS ORDERED: Sodium Chloride 0.9% 10 ML Syringe FLUSH PRN (15:04)
[2025-02-08] MEDS ORDERED: Sodium Chloride 0.9% 2.5 ML Syringe FLUSH PRN (15:04)
[2025-02-08] MEDS: Acidophilus with Citrus Pectin/L.acidophilus Tab PO SCH (16:45)
[2025-02-09 05:27] LABS: BASOPHILS ABSOLUTE AUTO 0.05 K/uL (0.00-0.20); BASOPHILS PERCENT AUTO 0.6 % (0.0-1.0); EOSINOPHILS ABSOLUTE AUTO 0.23 K/uL (0.00-0.45); EOSINOPHILS PERCENT AUTO 2.5 % (0.0-6.0); IMMATURE GRAN ABSOLUTE AUTO 0.02 K/uL (0.00-0.05); IMMATURE GRAN PERCENT AUTO 0.2 % (0.0-0.4); LYMPHOCYTES ABSOLUTE AUTO 1.25 K/uL (1.00-4.80); LYMPHOCYTES PERCENT AUTO 13.8 % (24.0-44.0); MEAN PLATELET VOLUME 9.8 fL (9.4-12.3); MONOCYTES ABSOLUTE AUTO 0.73 K/uL (0.00-0.80); MONOCYTES PERCENT AUTO 8.1 % (0.0-8.0); NEUTROPHILS ABSOLUTE AUTO 6.77 K/uL (1.80-7.70); NEUTROPHILS PERCENT AUTO 74.8 % (41.0-71.0); NRBC ABSOLUTE 0.00 K/uL (0.00-0.02); NRBC PERCENT 0.0 /100WBC (0.0-0.2); PLATELET COUNT,PLT 206 K/uL (150-400); RED BLOOD CELL COUNT 4.73 M/uL (4.10-5.30); WHITE BLOOD CELL COUNT,WBC 9.05 K/uL (3.9-11.3)
[2025-02-09 05:47] LABS: BLOOD UREA NITROGEN,BUN 5.0 mg/dL (7.0-18.0); CARBON DIOXIDE,CO2 35.3 mmol/L (21.0-32.0); CHLORIDE,CL 102.0 mmol/L (98-107); CREATININE 1.2 mg/dL (0.6-1.0); EST CRCL DRUG DOSING (CG) 36.45 mL/min; GLUCOSE RANDOM 104.0 mg/dL (74-106); POTASSIUM,K 3.3 mmol/L (3.5-5.1); SODIUM,NA 141.0 mmol/L (136-145)
[2025-02-09 05:59] LABS: ESTIMATED GFR 47.0 mL/min (>60)
[2025-02-09] MEDS: Potassium Chloride 20 MEQ Tab.ER PO ONE (09:28)
[2025-02-09] MEDS: Atropine/Diphenoxylate 0.025-2.5 MG Tab PO PRN (10:19)
[2025-02-09] MEDS: Psyllium Husk Powder Sugar Free 5.85 GM Packet PO SCH (10:19)
[2025-02-10] MEDS: Potassium Chloride 10 MEQ Tab.ER PO SCH (08:53)
[2025-02-10 14:50] VITALS: BP 150/69; PULSE 65
== END 2025-02-10 13:05 | disposition home or self-care (01) ==
LOC: MW.ED 10:06 → MW.MS 14:09
PROVIDERS: ADMIT Family Medicine; ATTEND Family Medicine
DX: R19.7 Diarrhea, unspecified (principal); R53.1 Weakness; I11.0 Hypertensive heart disease with heart failure; I50.32 Chronic diastolic (congestive) heart failure; S42.294A Other nondisplaced fracture of upper end of right humerus, initial encounter for closed fracture; E87.6 Hypokalemia; R73.03 Prediabetes; K21.9 Gastro-esophageal reflux disease without esophagitis; R60.0 Localized edema; E66.01 Morbid (severe) obesity due to excess calories; Z68.36 Body mass index [BMI] 36.0-36.9, adult; Z72.0 Tobacco use; Z79.82 Long term (current) use of aspirin; Z79.899 Other long term (current) drug therapy; Z88.8 Allergy status to other drugs, medicaments and biological substances; Z91.018 Allergy to other foods
CPT/HCPCS: 36415; 80048; 80053; 81001; 83690; 83735; 85025; 87045; 87046; 87086; 87324; 87449; 87899; 97162; 97165; 97530; 99285; A9270; G0378; 99283

== ENCOUNTER 2025-03-18 14:39 | Inpatient (IN) | payer MEDICARE, BC ==
[2025-03-18] MEDS ORDERED: Sodium Chloride 0.9% 2.5 ML Syringe FLUSH PRN ×2 (14:41→17:14)
[2025-03-18] MEDS ORDERED: Sodium Chloride 0.9% 10 ML Syringe FLUSH PRN ×2 (14:41→17:14)
[2025-03-18 15:13] LABS: BASOPHILS ABSOLUTE AUTO 0.07 K/uL (0.00-0.20); BASOPHILS PERCENT AUTO 0.8 % (0.0-1.0); EOSINOPHILS ABSOLUTE AUTO 0.19 K/uL (0.00-0.45); EOSINOPHILS PERCENT AUTO 2.1 % (0.0-6.0); IMMATURE GRAN ABSOLUTE AUTO 0.02 K/uL (0.00-0.05); IMMATURE GRAN PERCENT AUTO 0.2 % (0.0-0.4); LYMPHOCYTES ABSOLUTE AUTO 1.97 K/uL (1.00-4.80); LYMPHOCYTES PERCENT AUTO 21.7 % (24.0-44.0); MEAN PLATELET VOLUME 9.6 fL (9.4-12.3); MONOCYTES ABSOLUTE AUTO 0.56 K/uL (0.00-0.80); MONOCYTES PERCENT AUTO 6.2 % (0.0-8.0); NEUTROPHILS ABSOLUTE AUTO 6.28 K/uL (1.80-7.70); NEUTROPHILS PERCENT AUTO 69.0 % (41.0-71.0); NRBC ABSOLUTE 0.00 K/uL (0.00-0.02); NRBC PERCENT 0.0 /100WBC (0.0-0.2); PLATELET COUNT,PLT 235 K/uL (150-400); RED BLOOD CELL COUNT 5.22 M/uL (4.10-5.30); WHITE BLOOD CELL COUNT,WBC 9.09 K/uL (3.9-11.3)
[2025-03-18 15:21] LABS: BASE EXCESS VENOUS 11.8 (-2.0-3.0); BICARBONATE,VENOUS 38.0 mEq/L (22-29); PCO2 VENOUS 54.0 mmHG (41-51); PH,VENOUS 7.46 (7.32-7.43); PO2 VENOUS 35.0 mmHG (35-45)
[2025-03-18 15:28] LABS: INR 1.08 (0.86-1.11)
[2025-03-18] MEDS: Furosemide 40 MG/4 ML VIAL IVPUSH ONE ×2 (15:28→17:52)
[2025-03-18 16:12] LABS: A/G RATIO 1.0 (0.9-1.6); ALANINE AMINOTRANSFERASE,ALT 19 IU/L (14-63); ASPARTATE AMNIOTRANSFERASE,AST 17 IU/L (15-37); BILIRUBIN TOTAL 0.8 mg/dL (0.2-1.0); BLOOD UREA NITROGEN,BUN 11 mg/dL (7.0-18.0); CARBON DIOXIDE,CO2 33.5 mmol/L (21.0-32.0); CHLORIDE,CL 101 mmol/L (98-107); CREATININE 1.1 mg/dL (0.6-1.0); GLUCOSE RANDOM 127 mg/dL (74-106); POTASSIUM,K 3.2 mmol/L (3.5-5.1); PRO B-TYPE NATRIUR PEPT,BNPPRO 902 pg/mL (0-450); PROTEIN TOTAL,TP 7.2 g/dL (6.4-8.2); SODIUM,NA 144 mmol/L (136-145)
[2025-03-18 16:14] LABS: ESTIMATED GFR 52 mL/min (>60)
[2025-03-18] MEDS: Potassium Chloride 20 MEQ Tab.ER PO ONE (16:21)
[2025-03-18] MEDS ORDERED: Ketorolac 30 MG/ML SDV IVPUSH PRN (17:14)
[2025-03-19 05:46] LABS: BASOPHILS ABSOLUTE AUTO 0.08 K/uL (0.00-0.20); BASOPHILS PERCENT AUTO 0.9 % (0.0-1.0); EOSINOPHILS ABSOLUTE AUTO 0.31 K/uL (0.00-0.45); EOSINOPHILS PERCENT AUTO 3.4 % (0.0-6.0); IMMATURE GRAN ABSOLUTE AUTO 0.02 K/uL (0.00-0.05); IMMATURE GRAN PERCENT AUTO 0.2 % (0.0-0.4); LYMPHOCYTES ABSOLUTE AUTO 2.17 K/uL (1.00-4.80); LYMPHOCYTES PERCENT AUTO 24.0 % (24.0-44.0); MEAN PLATELET VOLUME 9.6 fL (9.4-12.3); MONOCYTES ABSOLUTE AUTO 0.68 K/uL (0.00-0.80); MONOCYTES PERCENT AUTO 7.5 % (0.0-8.0); NEUTROPHILS ABSOLUTE AUTO 5.78 K/uL (1.80-7.70); NEUTROPHILS PERCENT AUTO 64.0 % (41.0-71.0); NRBC ABSOLUTE 0.00 K/uL (0.00-0.02); NRBC PERCENT 0.0 /100WBC (0.0-0.2); PLATELET COUNT,PLT 193 K/uL (150-400); RED BLOOD CELL COUNT 4.65 M/uL (4.10-5.30); WHITE BLOOD CELL COUNT,WBC 9.04 K/uL (3.9-11.3)
[2025-03-19 06:19] LABS: A/G RATIO 1.0 (0.9-1.6); ALANINE AMINOTRANSFERASE,ALT 13.0 IU/L (14-63); ASPARTATE AMNIOTRANSFERASE,AST 14.0 IU/L (15-37); BILIRUBIN TOTAL 0.7 mg/dL (0.2-1.0); BLOOD UREA NITROGEN,BUN 11.0 mg/dL (7.0-18.0); CARBON DIOXIDE,CO2 34.7 mmol/L (21.0-32.0); CHLORIDE,CL 103.0 mmol/L (98-107); CHOLESTEROL HDL 43.0 mg/dL (40-60); CHOLESTEROL LDL CALCULATED 47.0 mg/dL (60-180); CHOLESTEROL TOTAL 116.0 mg/dL (50-200); CREATININE 1.0 mg/dL (0.6-1.0); EST CRCL DRUG DOSING (CG) 43.74 mL/min; GLUCOSE RANDOM 110.0 mg/dL (74-106); PHOSPHORUS 3.6 mg/dL (2.6-4.7); POTASSIUM,K 3.2 mmol/L (3.5-5.1); PROTEIN TOTAL,TP 6.0 g/dL (6.4-8.2); SODIUM,NA 144.0 mmol/L (136-145); TSH ULTRASENSITIVE 2.34 uIU/mL (0.36-3.74); VLDL CHOLESTEROL 26.0 mg/dL (5-55)
[2025-03-19 06:20] LABS: ESTIMATED GFR 59.0 mL/min (>60)
[2025-03-19] MEDS: Acidophilus with Citrus Pectin/L.acidophilus Tab PO SCH (08:10)
[2025-03-19] MEDS: Furosemide 40 MG/4 ML VIAL IVPUSH SCH (08:10)
[2025-03-19] MEDS: Potassium Chloride 20 MEQ Tab.ER PO SCH (08:11)
[2025-03-19] MEDS: Psyllium Husk Powder Sugar Free 5.85 GM Packet PO SCH (08:11)
[2025-03-19] MEDS ORDERED: Furosemide 40 MG/4 ML VIAL IVPUSH SCH (09:00)
[2025-03-19] MEDS: Metoprolol Succinate 100 MG Tab.ER PO SCH (09:51)
[2025-03-19] MEDS: Acetaminophen/HYDROcodone 325-5 MG Tab PO ONE (14:18)
[2025-03-19] MEDS: PSYLLIUM FIBER PO SCH (20:03)
[2025-03-19] MEDS: Metoprolol Succinate 100 MG Tab.ER PO ONE (21:13)
[2025-03-20 06:10] LABS: BASOPHILS ABSOLUTE AUTO 0.06 K/uL (0.00-0.20); BASOPHILS PERCENT AUTO 0.7 % (0.0-1.0); EOSINOPHILS ABSOLUTE AUTO 0.23 K/uL (0.00-0.45); EOSINOPHILS PERCENT AUTO 2.6 % (0.0-6.0); IMMATURE GRAN ABSOLUTE AUTO 0.02 K/uL (0.00-0.05); IMMATURE GRAN PERCENT AUTO 0.2 % (0.0-0.4); LYMPHOCYTES ABSOLUTE AUTO 1.24 K/uL (1.00-4.80); LYMPHOCYTES PERCENT AUTO 14.2 % (24.0-44.0); MEAN PLATELET VOLUME 10.0 fL (9.4-12.3); MONOCYTES ABSOLUTE AUTO 0.72 K/uL (0.00-0.80); MONOCYTES PERCENT AUTO 8.3 % (0.0-8.0); NEUTROPHILS ABSOLUTE AUTO 6.44 K/uL (1.80-7.70); NEUTROPHILS PERCENT AUTO 74.0 % (41.0-71.0); NRBC ABSOLUTE 0.00 K/uL (0.00-0.02); NRBC PERCENT 0.0 /100WBC (0.0-0.2); PLATELET COUNT,PLT 201 K/uL (150-400); RED BLOOD CELL COUNT 4.77 M/uL (4.10-5.30); WHITE BLOOD CELL COUNT,WBC 8.71 K/uL (3.9-11.3)
[2025-03-20 06:39] LABS: A/G RATIO 0.9 (0.9-1.6); ALANINE AMINOTRANSFERASE,ALT 6.0 IU/L (14-63); ASPARTATE AMNIOTRANSFERASE,AST 19.0 IU/L (15-37); BILIRUBIN TOTAL 1.0 mg/dL (0.2-1.0); BLOOD UREA NITROGEN,BUN 14.0 mg/dL (7.0-18.0); CARBON DIOXIDE,CO2 33.8 mmol/L (21.0-32.0); CHLORIDE,CL 103.0 mmol/L (98-107); CREATININE 0.9 mg/dL (0.6-1.0); EST CRCL DRUG DOSING (CG) 48.6 mL/min; GLUCOSE RANDOM 116.0 mg/dL (74-106); POTASSIUM,K 3.8 mmol/L (3.5-5.1); PROTEIN TOTAL,TP 6.2 g/dL (6.4-8.2); SODIUM,NA 143.0 mmol/L (136-145)
[2025-03-20 06:42] LABS: ESTIMATED GFR 67.0 mL/min (>60)
[2025-03-20 08:11] LABS: BASE EXCESS VENOUS 12.7 (-2.0-3.0); BICARBONATE,VENOUS 39.0 mEq/L (22-29); PCO2 VENOUS 52.0 mmHG (41-51); PH,VENOUS 7.48 (7.32-7.43); PO2 VENOUS 70.0 mmHG (35-45)
[2025-03-20] MEDS: Nystatin Topical Powder 15 GM Bottle TOP SCH (09:57)
[2025-03-20] MEDS: Sennosides/Docusate Sodium 50-8.6 MG Tab PO ONE (12:53)
[2025-03-20] MEDS: Metoprolol Succinate 100 MG Tab.ER PO SCH (20:44)
[2025-03-20] MEDS ORDERED: Metoprolol Succinate 100 MG Tab.ER PO ONE (21:01)
[2025-03-21 05:43] LABS: BASOPHILS ABSOLUTE AUTO 0.07 K/uL (0.00-0.20); BASOPHILS PERCENT AUTO 0.9 % (0.0-1.0); EOSINOPHILS ABSOLUTE AUTO 0.29 K/uL (0.00-0.45); EOSINOPHILS PERCENT AUTO 3.8 % (0.0-6.0); IMMATURE GRAN ABSOLUTE AUTO 0.01 K/uL (0.00-0.05); IMMATURE GRAN PERCENT AUTO 0.1 % (0.0-0.4); LYMPHOCYTES ABSOLUTE AUTO 1.34 K/uL (1.00-4.80); LYMPHOCYTES PERCENT AUTO 17.4 % (24.0-44.0); MEAN PLATELET VOLUME 9.9 fL (9.4-12.3); MONOCYTES ABSOLUTE AUTO 0.79 K/uL (0.00-0.80); MONOCYTES PERCENT AUTO 10.3 % (0.0-8.0); NEUTROPHILS ABSOLUTE AUTO 5.18 K/uL (1.80-7.70); NEUTROPHILS PERCENT AUTO 67.5 % (41.0-71.0); NRBC ABSOLUTE 0.00 K/uL (0.00-0.02); NRBC PERCENT 0.0 /100WBC (0.0-0.2); PLATELET COUNT,PLT 187 K/uL (150-400); RED BLOOD CELL COUNT 4.60 M/uL (4.10-5.30); WHITE BLOOD CELL COUNT,WBC 7.68 K/uL (3.9-11.3)
[2025-03-21 06:13] LABS: A/G RATIO 0.9 (0.9-1.6); ALANINE AMINOTRANSFERASE,ALT 17.0 IU/L (14-63); ASPARTATE AMNIOTRANSFERASE,AST 24.0 IU/L (15-37); BILIRUBIN TOTAL 0.5 mg/dL (0.2-1.0); BLOOD UREA NITROGEN,BUN 13.0 mg/dL (7.0-18.0); CARBON DIOXIDE,CO2 32.5 mmol/L (21.0-32.0); CHLORIDE,CL 102.0 mmol/L (98-107); CREATININE 1.2 mg/dL (0.6-1.0); EST CRCL DRUG DOSING (CG) 36.45 mL/min; ESTIMATED GFR 47.0 mL/min (>60); GLUCOSE RANDOM 107.0 mg/dL (74-106); POTASSIUM,K 4.0 mmol/L (3.5-5.1); PROTEIN TOTAL,TP 6.3 g/dL (6.4-8.2); SODIUM,NA 143.0 mmol/L (136-145)
[2025-03-22 05:56] LABS: BASOPHILS ABSOLUTE AUTO 0.06 K/uL (0.00-0.20); BASOPHILS PERCENT AUTO 1.0 % (0.0-1.0); EOSINOPHILS ABSOLUTE AUTO 0.38 K/uL (0.00-0.45); EOSINOPHILS PERCENT AUTO 6.0 % (0.0-6.0); IMMATURE GRAN ABSOLUTE AUTO 0.02 K/uL (0.00-0.05); IMMATURE GRAN PERCENT AUTO 0.3 % (0.0-0.4); LYMPHOCYTES ABSOLUTE AUTO 1.78 K/uL (1.00-4.80); LYMPHOCYTES PERCENT AUTO 28.2 % (24.0-44.0); MEAN PLATELET VOLUME 10.0 fL (9.4-12.3); MONOCYTES ABSOLUTE AUTO 0.76 K/uL (0.00-0.80); MONOCYTES PERCENT AUTO 12.0 % (0.0-8.0); NEUTROPHILS ABSOLUTE AUTO 3.31 K/uL (1.80-7.70); NEUTROPHILS PERCENT AUTO 52.5 % (41.0-71.0); NRBC ABSOLUTE 0.00 K/uL (0.00-0.02); NRBC PERCENT 0.0 /100WBC (0.0-0.2); PLATELET COUNT,PLT 191 K/uL (150-400); RED BLOOD CELL COUNT 4.61 M/uL (4.10-5.30); WHITE BLOOD CELL COUNT,WBC 6.31 K/uL (3.9-11.3)
[2025-03-22 06:37] LABS: A/G RATIO 0.9 (0.9-1.6); ALANINE AMINOTRANSFERASE,ALT 11.0 IU/L (14-63); ASPARTATE AMNIOTRANSFERASE,AST 17.0 IU/L (15-37); BILIRUBIN TOTAL 0.9 mg/dL (0.2-1.0); BLOOD UREA NITROGEN,BUN 19.0 mg/dL (7.0-18.0); CARBON DIOXIDE,CO2 34.1 mmol/L (21.0-32.0); CHLORIDE,CL 100.0 mmol/L (98-107); CREATININE 1.1 mg/dL (0.6-1.0); EST CRCL DRUG DOSING (CG) 39.76 mL/min; GLUCOSE RANDOM 104.0 mg/dL (74-106); POTASSIUM,K 4.1 mmol/L (3.5-5.1); PROTEIN TOTAL,TP 6.2 g/dL (6.4-8.2); SODIUM,NA 140.0 mmol/L (136-145)
[2025-03-22 06:38] LABS: ESTIMATED GFR 52.0 mL/min (>60)
[2025-03-22 12:38] VITALS: BP 150/67; PULSE 60
== END 2025-03-22 14:53 | disposition home or self-care (01) | DRG 291 ==
LOC: MW.ED 14:39 → MW.MS 16:39
PROVIDERS: ADMIT Family Medicine; ATTEND Family Medicine
DX: J90 Pleural effusion, not elsewhere classified (principal); I11.0 Hypertensive heart disease with heart failure; I50.33 Acute on chronic diastolic (congestive) heart failure; Z66 Do not resuscitate; J44.9 Chronic obstructive pulmonary disease, unspecified; K21.9 Gastro-esophageal reflux disease without esophagitis; E87.70 Fluid overload, unspecified; R79.89 Other specified abnormal findings of blood chemistry; M25.572 Pain in left ankle and joints of left foot; M19.90 Unspecified osteoarthritis, unspecified site; E87.6 Hypokalemia; M20.42 Other hammer toe(s) (acquired), left foot; F17.200 Nicotine dependence, unspecified, uncomplicated; E66.812 Obesity, class 2; R73.03 Prediabetes; I08.1 Rheumatic disorders of both mitral and tricuspid valves; S90.02XA Contusion of left ankle, initial encounter; Z91.018 Allergy to other foods; Z88.8 Allergy status to other drugs, medicaments and biological substances; Z79.899 Other long term (current) drug therapy; Z86.73 Personal history of transient ischemic attack (TIA), and cerebral infarction without residual deficits; Z90.49 Acquired absence of other specified parts of digestive tract; Z68.36 Body mass index [BMI] 36.0-36.9, adult; Z79.82 Long term (current) use of aspirin; X58.XXXA Exposure to other specified factors, initial encounter; Y92.89 Other specified places as the place of occurrence of the external cause
CPT/HCPCS: 36415; 71045; 71045-26; 71046; 71046-26; 73610-26-LT; 73610-LT; 73620-26-LT; 73620-LT; 80053; 80061; 82803; 83036; 83735; 83880; 84100; 84443; 84484; 85025; 85610; 87040; 93005; 93010; 93306; 94640; 96374; 97110-GP; 97161-GP; 97530-GP; 99285; 99285-25; A9270-GY; J1938